=== PATIENT | male | born 1975 | race Caucasian/White ===

== ENCOUNTER 2017-12-17 09:48 | Emergency (ER) | payer OTHER ==
[~2017-12-17] VITALS: Ht 175.3 cm; Wt 97.0 kg
[2017-12-17] MEDS ORDERED: OMEPRAZOLE10 MG PO (10:20)
[2017-12-17] MEDS ORDERED: EPIPEN 2-P0.3 MG/0.3 SC (11:05)
[2017-12-17] MEDS ORDERED: DELTASONE20 MG PO (11:05)
[2017-12-17 12:08] VITALS: BP 111/70
== END 2017-12-17 12:15 | disposition home or self-care (01) | DRG 916 ==
LOC: ED 09:48
DX: T78.40XA Allergy, unspecified, initial encounter (principal); K21.9 Gastro-esophageal reflux disease without esophagitis; X58.XXXA Exposure to other specified factors, initial encounter